=== PATIENT | male | born 1955 | race Two or more races ===

== ENCOUNTER 2022-07-11 10:23 | Emergency (ER) | payer OTHER ==
[2022-07-11 11:05] VITALS: TEMP 98; BMI 36.6
[2022-07-11 11:14] LABS: HEMATOCRIT 34.7 % (35.4-49); HEMOGLOBIN 11.6 GM/dL (11.7-16.9); MCH 35.9 pg (25.7-33.7); MCHC 33.4 g/dl (32.0-35.9); MEAN CELL VOLUME 107.3 fl (80-96); MEAN PLT VOLUME 8.8 fl (7.5-11.1); PLATELET COUNT 171 10^3/uL (134-434); RBC 3.23 M/mm3 (4.00-5.60); RDW 15.8 % (11.9-15.9); WHITE BLOOD COUNT 6.7 K/mm3 (4.0-10.0)
[2022-07-11 11:42] LABS: ALBUMIN 3.4 g/dl (3.4-5.0); CALCIUM 8.8 mg/dL (8.5-10.1)
[2022-07-11 11:43] LABS: BLOOD UREA NITROGEN 57.6 mg/dL (7-18)
[2022-07-11 11:46] LABS: CREATININE 5.2 mg/dL (0.55-1.3)
[2022-07-11 11:47] LABS: BILIRUBIN,TOTAL 0.5 mg/dL (0.2-1); TOT PROT 7.2 g/dl (6.4-8.2)
[2022-07-11 13:22] VITALS: BP 134/76; PULSE 87; RESP 16
== END 2022-07-11 13:20 | disposition home or self-care (01) ==
LOC: JER 10:23
DX: R94.31 Abnormal electrocardiogram [ECG] [EKG] (principal)
CPT/HCPCS: 36415; 71275-TC; 74174-TC; 80053; 82962; 85027; 86850; 86900; 86901; 93005; 93010; 99285-25; Q9967